=== PATIENT | female | born 1965 | race Native Hawaiian/Other Pacific Islander ===

== ENCOUNTER 2018-11-20 11:52 | Outpatient (CLI) | payer BC | END 2018-11-20 11:53 | disposition home or self-care (01) | LOC: C.DEXAIC 11:52 | DX: Z13.820 Encounter for screening for osteoporosis (principal); M85.88 Other specified disorders of bone density and structure, other site; Z12.31 Encounter for screening mammogram for malignant neoplasm of breast ==